=== PATIENT | female | born 1950 | race Caucasian/White ===

== ENCOUNTER 2021-06-05 09:39 | Inpatient (IN) | payer MEDICARE, BC ==
[2021-06-05] MEDS ORDERED: SODIUM CHLORIDE 0.9% 1,000 ML IV STA (10:41)
[2021-06-05] MEDS ORDERED: HYDROmorphone 0.5 MG/0.5 ML SYRINGE IVP STA (10:41)
[2021-06-05] MEDS ORDERED: ONDANSETRON 4 MG/2 ML VIAL IVP STA (10:41)
--- NOTE | 2021-06-05 10:51 | ED ---
Nausea/Vomiting/Diarrhea HPI - General Chief complaint: Nausea/Vomiting/Diarrhea Stated complaint: Diverticulitis Time Seen by Provider: 06/05/21 10:02 Source: patient, EMS, RN notes reviewed Mode of arrival: EMS Limitations: no limitations - History of Present Illness Initial comments: This a 71-year-old female presents emergency Department with chief complaint of abdominal pain. Patient states she started having abdominal pain around 10 PM last night. Patient states diffuse has a history of diverticulitis, hernia repairs her abdomen. Patient admits to diarrhea nonbloody, states there is some mucus. Patient states she has nausea without vomiting. Patient denies fever but has had some chills at home. Patient is concerned about possible infection. - Related Data Home Medications Medication Instructions Recorded Confirmed Diazepam [Valium] 5 mg PO DAILY PRN 06/05/21 06/05/21 Isosorbide Mononitrate ER [Imdur] 60 mg PO DAILY 06/05/21 06/05/21 Levothyroxine Sodium [Synthroid] 200 mcg PO DAILY 06/05/21 06/05/21 Metoprolol Succinate [Toprol XL] 25 mg PO DAILY 06/05/21 06/05/21 Montelukast Sodium [Singulair] 10 mg PO DAILY 06/05/21 06/05/21 Multivitamins, Thera [Multivitamin 1 tab PO DAILY 06/05/21 06/05/21 (formulary)] Nitroglycerin Sl Tabs [Nitrostat] 0.4 mg SUBLINGUAL Q5M PRN 06/05/21 06/05/21 [place]-3 Fatty Acids/Fish Oil [Fish 1 cap PO DAILY 06/05/21 06/05/21 Oil 1,000 mg Softgel] Ondansetron Odt [Zofran Odt] 4 mg PO DAILY PRN 06/05/21 06/05/21 Oxybutynin Chloride [Oxybutynin 10 mg PO DAILY 06/05/21 06/05/21 Chloride ER] Pantoprazole [Protonix] 40 mg PO BID 06/05/21 06/05/21 Simvastatin [Zocor] 40 mg PO DAILY 06/05/21 06/05/21 atenoloL [Atenolol] 25 mg PO DAILY 06/05/21 06/05/21 lisinopriL 40 mg PO DAILY 06/05/21 06/05/21 Allergies Allergy/AdvReac Type Severity Reaction Status Date / Time morphine AdvReac Unknown Verified 06/05/21 10:25 Review of Systems ROS Statement: Those systems with pertinent positive or pertinent negative responses have been documented in the HPI. ROS Other: All systems not noted in ROS Statement are negative. Past Medical History Past Medical History: Asthma, Coronary Artery Disease (CAD), Hyperlipidemia, Hypertension, Pneumonia, Sleep Apnea/CPAP/BIPAP History of Any Multi-Drug Resistant Organisms: MRSA Past Surgical History: Section, Heart Catheterization With Stent, Hernia Repair Additional Past Surgical History / Comment(s): gastric bypass sleeve, vein stripping, L foot bone graft from L hip margaret britton, kim Past Psychological History: No Psychological Hx Reported Smoking Status: Former smoker Past Alcohol Use History: Occasional Past Drug Use History: None Reported General Exam Limitations: no limitations General appearance: alert, in no apparent distress Head exam: Present: atraumatic, normocephalic, normal inspection Respiratory exam: Present: normal lung sounds bilaterally. Absent: respiratory distress, wheezes, rales, rhonchi, stridor Cardiovascular Exam: Present: regular rate, normal rhythm, normal heart sounds. Absent: systolic murmur, diastolic murmur, rubs, gallop, clicks GI/Abdominal exam: Present: soft, tenderness, normal bowel sounds. Absent: distended, guarding, rebound, rigid Back exam: Absent: CVA tenderness (R), CVA tenderness (L) Course Vital Signs 06/05/21 09:41 Temperature 98.4 F Pulse Rate 70 Respiratory 18 Rate Blood Pressure 138/87 O2 Sat by Pulse 92 L Oximetry Medical Decision Making - Medical Decision Making 71-year-old female presents emergency department for abdominal pain. Patient's found to have diverticulitis. Patient is not taking orally well. Patient will be admitted for IV antibiotics. - Lab Data Result diagrams: 06/05/21 10:44 06/05/21 10:44 Lab Results 06/05/21 06/05/21 06/05/21 Range/Units 10:44 10:44 10:44 WBC 10.1 (3.8-10.6) k/uL RBC 4.51 (3.80-5.40) m/uL Hgb 14.3 (11.4-16.0) gm/dL Hct 43.8 (34.0-46.0) % MCV 97.2 (80.0-100.0) fL MCH 31.7 (25.0-35.0) pg MCHC 32.6 (31.0-37.0) g/dL RDW 13.9 (11.5-15.5) % Plt Count 274 (150-450) k/uL MPV 7.6 Neutrophils % 77 % Lymphocytes % 14 % Monocytes % 5 % Eosinophils % 3 % Basophils % 1 % Neutrophils # 7.8 H (1.3-7.7) k/uL Lymphocytes # 1.4 (1.0-4.8) k/uL Monocytes # 0.5 (0-1.0) k/uL Eosinophils # 0.3 (0-0.7) k/uL Basophils # 0.1 (0-0.2) k/uL Sodium 140 (137-145) mmol/L Potassium 4.8 (3.5-5.1) mmol/L Chloride 105 (98-107) mmol/L Carbon Dioxide 24 (22-30) mmol/L Anion Gap 11 mmol/L BUN 22 H (7-17) mg/dL Creatinine 0.89 (0.52-1.04) mg/dL Est GFR (CKD-EPI)AfAm 76 (>60 ml/min/1.73 sqM) Est GFR (CKD-EPI)NonAf 66 (>60 ml/min/1.73 sqM) Glucose 119 H (74-99) mg/dL Plasma Lactic Acid Jermaine 1.4 (0.7-2.0) mmol/L Calcium 10.2 (8.4-10.2) mg/dL Total Bilirubin 0.5 (0.2-1.3) mg/dL AST 31 (14-36) U/L ALT 24 (4-34) U/L Alkaline Phosphatase 75 (38-126) U/L Total Protein 7.3 (6.3-8.2) g/dL Albumin 4.5 (3.5-5.0) g/dL Amylase 58 (30-110) U/L Lipase 81 (23-300) U/L Disposition Clinical Impression: Diverticulitis, Nausea & vomiting Disposition: ADMITTED IP TO THIS HOSP Condition: Fair Referrals: Artemio Hollingsworth III, MD [Primary Care Provider] - 1-2 days Time of Disposition: 13:40
[2021-06-05 11:05] LABS: Basophils # (A) 0.1 k/uL (0-0.2); Basophils % (A) 1 %; Eosinophils # (A) 0.3 k/uL (0-0.7); Eosinophils % (A) 3 %; HCT 43.8 % (34.0-46.0); HGB 14.3 gm/dL (11.4-16.0); Lymphocytes # (A) 1.4 k/uL (1.0-4.8); Lymphocytes % (A) 14 %; MCH 31.7 pg (25.0-35.0); MCHC 32.6 g/dL (31.0-37.0); MCV 97.2 fL (80.0-100.0); Mean Platelet Volume 7.6; Monocytes # (A) 0.5 k/uL (0-1.0); Monocytes % (A) 5 %; Neutrophils # (A) 7.8 k/uL (1.3-7.7); Neutrophils % (A) 77 %; Platelet Count 274 k/uL (150-450); RBC 4.51 m/uL (3.80-5.40); RDW 13.9 % (11.5-15.5); WBC 10.1 k/uL (3.8-10.6)
[2021-06-05 11:14] LABS: Albumin 4.5 g/dL (3.5-5.0); Calcium 10.2 mg/dL (8.4-10.2); Potassium 4.8 mmol/L (3.5-5.1); Total Bilirubin 0.5 mg/dL (0.2-1.3); Total Protein 7.3 g/dL (6.3-8.2)
--- NOTE | 2021-06-05 12:45 | CT ---
EXAMINATION TYPE: CT abdomen pelvis w con DATE OF EXAM: 06/05/2021 COMPARISON: None HISTORY: generalized abdominal pain, history of diverticulitis CT DLP: 2913.4 mGycm CONTRAST: CT scan of the abdomen and pelvis is performed without Oral Contrast and with IV Contrast, patient in jected with 100 mL of Isovue 300. FINDINGS: LUNG BASES-: No visible nodule. No infiltrate. LIVER/GB: No calcified gallstones. No space occupying hepatic lesion. Biliary tree is of normal ca liber. PANCREAS: No inflammation. No distinct mass. SPLEEN: No splenic enlargement. No lesion seen. ADRENALS: No nodule. No thickening. KIDNEYS/BLADDER: No hydronephrosis. No nephrolithiasis. No distinct renal mass. Urinary bladder g rossly unremarkable. BOWEL: Normal appendix. Normal bowel caliber. Inflammatory change about the sigmoid colon compatible with uncomplicated acute diverticulitis. No evidence of perforation or abscess. GENITAL ORGANS: No gross abnormality. LYMPH NODES: No greater than 1cm abdominal or pelvic lymph nodes are appreciated. AORTA: No significant abnormality. OSSEOUS STRUCTURES: Right hip prosthesis. OTHER: No significant additional abnormality is seen. IMPRESSION: 1. Inflammatory change about the sigmoid colon compatible with uncomplicated acute diverticulitis.
[2021-06-05] MEDS ORDERED: metroNIDAZOLE-NS PMX 500 MG in SALINE 1 100ML.BAG IVPB STA (13:41)
[2021-06-05] MEDS ORDERED: HYDROmorphone 0.5 MG/0.5 ML SYRINGE IVP PRN (13:41)
[2021-06-05] MEDS ORDERED: LEVOFLOXACIN 750MG-D5W PMX 750 MG in DEXTROSE/WATER 1 150ML.BAG IVPB STA (13:41)
[2021-06-05] MEDS ORDERED: NALOXONE 0.4 MG/ML 1 ML VIAL IV PRN (13:41)
[2021-06-05 14:08] LABS: Appearance,Urine Clear (Clear); Bilirubin,Urine Negative (Negative); Blood,Urine Negative (Negative); Color,Urine Yellow; Glucose,Urine (UA) Negative (Negative); Ketones,Urine Negative (Negative); Leukocyte Esterase,Urine Negative (Negative); Nitrite,Urine Negative (Negative); Protein,Urine Negative (Negative); Urobilinogen,Urine <2.0 mg/dL (<2.0)
[2021-06-05] MEDS: SODIUM CHLORIDE 0.9% 1,000 ML IV SCH (14:26)
[2021-06-05 14:39] LABS: Specific Gravity,Urine 1.045 (1.001-1.035)
[2021-06-05] MEDS: ONDANSETRON 4 MG/2 ML VIAL IVP PRN (15:54)
[2021-06-05] MEDS: ACETAMINOPHEN TAB 325 MG TAB PO PRN (19:53)
--- NOTE | 2021-06-05 21:21 | P.HPIM ---
History of Present Illness This is a pleasant 71 years old female with past medical history of coronary artery disease, hypertension, hyperlipidemia, sleep apnea on CPAP/BiPAP, asthma, previous history of diverticulitis. Presents with generalized abdominal pain. She is a known case of having diverticulitis last time was last September associated with rectal bleeding she underwent a colonoscopy last December-January 2021 at [facility] where there is another polyp was removed This time her pain started 2 days ago felt like pulsating and compression a ssociated with nausea, pain was 10/10 in severity improved with an ultrasonic down to 5/10. No chest pain or dyspnea area to no coughing. No diarrhea. No vomiting. No headache or weakness or numbness. She quit smoking in 2000, drinks alcohol occasional no illicit drugs Vitas looks stable, oxygen is 90-92% on room air Labs is unremarkable including CBC, BMP, liver enzymes, with normal amylase and lipase. Urine analysis is not suspicious of infection CT of the abdomen and pelvis with contrast: Suspected acute sigmoid diverticulitis patient was started on Levaquin and Flagyl in the emergency room together with normal saline at 75 ml/h Review of Systems CONSTITUTIONAL: No fever, no malaise, no fatigue. HEENT: No recent visual problems or hearing problems. Denied any sore throat. CARDIOVASCULAR: No orthopnea, PND, no palpitations, no syncope. PULMONARY: No shortness of breath, no cough, no hemoptysis. GASTROINTESTINAL: No diarrhea, no nausea, no vomiting, no abdominal pain. Normoactive bowel sounds. NEUROLOGICAL: No headaches, no weakness, no numbness. HEMATOLOGICAL: Denies any bleeding or petechiae. GENITOURINARY: Denies any burning micturition, frequency, or urgency. MUSCULOSKELETAL/RHEUMATOLOGICAL: Denies any joint pain, swelling, or any muscle pain. ENDOCRINE: Denies any polyuria or polydipsia. Past Medical History Past Medical History: Asthma, Coronary Artery Disease (CAD), Hyperlipidemia, Hypertension, Pneumonia, Sleep Apnea/CPAP/BIPAP History of Any Multi-Drug Resistant Organisms: MRSA Past Surgical History: Section, Heart Catheterization With Stent, Hernia Repair Additional Past Surgical History / Comment(s): gastric bypass sleeve, vein stripping, L foot bone graft from L hip margaret britton pt Past Psychological History: No Psychological Hx Reported Smoking Status: Former smoker Past Alcohol Use History: Occasional Past Drug Use History: None Reported Medications and Allergies Home Medications Medication Instructions Recorded Confirmed Type Diazepam [Valium] 5 mg PO DAILY PRN 06/05/21 06/05/21 History Isosorbide Mononitrate ER [Imdur] 60 mg PO DAILY 06/05/21 06/05/21 History Levothyroxine Sodium [Synthroid] 200 mcg PO DAILY 06/05/21 06/05/21 History Metoprolol Succinate [Toprol XL] 25 mg PO DAILY 06/05/21 06/05/21 History Montelukast Sodium [Singulair] 10 mg PO DAILY 06/05/21 06/05/21 History Multivitamins, Thera [Multivitamin 1 tab PO DAILY 06/05/21 06/05/21 History (formulary)] Nitroglycerin Sl Tabs [Nitrostat] 0.4 mg SUBLINGUAL Q5M PRN 06/05/21 06/05/21 History [place]-3 Fatty Acids/Fish Oil [Fish 1 cap PO DAILY 06/05/21 06/05/21 History Oil 1,000 mg Softgel] Ondansetron Odt [Zofran Odt] 4 mg PO DAILY PRN 06/05/21 06/05/21 History Oxybutynin Chloride [Oxybutynin 10 mg PO DAILY 06/05/21 06/05/21 History Chloride ER] Pantoprazole [Protonix] 40 mg PO BID 06/05/21 06/05/21 History Simvastatin [Zocor] 40 mg PO DAILY 06/05/21 06/05/21 History atenoloL [Atenolol] 25 mg PO DAILY 06/05/21 06/05/21 History lisinopriL 40 mg PO DAILY 06/05/21 06/05/21 History Allergies Allergy/AdvReac Type Severity Reaction Status Date / Time morphine AdvReac Unknown Verified 06/05/21 10:25 Physical Exam Vitals: Vital Signs Temp Pulse Resp BP Pulse Ox 06/05/21 18:17 59 L 18 118/55 90 L 06/05/21 09:41 98.4 F 70 18 138/87 92 L Intake and Output 06/05/21 06/05/21 06/05/21 06:59 14:59 22:59 Other: Weight 143.335 kg GENERAL: The patient is alert and oriented x3, not in any acute distress. Well developed, well nourished. HEENT: Pupils are round and equally reacting to light. EOMI. No scleral icterus. No conjunctival pallor. Normocephalic, atraumatic. No pharyngeal erythema. No thyromegaly. CARDIOVASCULAR: S1 and S2 present. No murmurs, rubs, or gallops. PULMONARY: Chest is clear to auscultation, no wheezing or crackles. -ABDOMEN: Soft, generalized abdominal tenderness, more in the lower abdomen, no rebound tenderness or guarding, nondistended, normoactive bowel sounds. No palpable organomegaly. MUSCULOSKELETAL: No joint swelling or deformity. EXTREMITIES: No cyanosis, clubbing, or pedal edema. NEUROLOGICAL: Gross neurological examination did not reveal any focal deficits. SKIN: No rashes. No petechiae Results CBC & Chem 7: 06/05/21 10:44 06/05/21 10:44 Labs: Abnormal Lab Results - Last 24 Hours (Table) 06/05/21 06/05/21 06/05/21 Range/Units 10:44 10:44 10:44 Neutrophils # 7.8 H (1.3-7.7) k/uL BUN 22 H (7-17) mg/dL Glucose 119 H (74-99) mg/dL Ur Specific [place] 1.045 H (1.001-1.035) Assessment and Plan Assessment: Acute sigmoid diverticulitis Hypertension Hyperlipidemia History of coronary artery disease Sleep apnea on CPAP/BiPAP History of asthma Morbid obesity with BMI of 54.2 Plan: This is a pleasant 71 years old female with acute diverticulitis. New with Flagyl and Levaquin and gentle hydration Bowel rest Surgery team consult Labs and medication were reviewed.. Continue same treatment. Continue with symptomatic treatment. Resume home medication. Monitor lytes and vitals. DVT and GI prophylaxis. Further recommendationsas per clinical course of the patient DVT prophylaxis: Subcutaneous heparin GI Prophylaxis: Pepcid Prognosis is guarded
--- NOTE | 2021-06-05 23:25 | XR ---
EXAMINATION TYPE: XR chest 1V portable DATE OF EXAM: 06/05/2021 COMPARISON: NONE HISTORY: Short of breath TECHNIQUE: Single view FINDINGS: Heart and mediastinum are normal. Lungs are clear of infiltrate. Diaphragm is intact. There is minimal subsegmental atelectasis left lung base. Thoracic aorta is atheromatous. IMPRESSION: Minimal subsegmental atelectasis left lung base. No heart failure.
[2021-06-06] MEDS: ONDANSETRON 4 MG/2 ML VIAL IVP PRN
[2021-06-06] MEDS: metroNIDAZOLE-NS PMX 500 MG in SALINE 1 100ML.BAG IVPB SCH ×3 (00:34→15:16)
[2021-06-06] MEDS: HEPARIN SODIUM,PORCINE/PF 5,000 UNIT/0.5 ML SYRINGE SQ SCH ×3 (00:37→15:16)
[2021-06-06] MEDS ORDERED: diazePAM 5 MG TAB PO PRN (01:20)
[2021-06-06] MEDS ORDERED: NITROGLYCERIN SL TABS 0.4 MG TAB SUBLINGUAL PRN (01:20)
[2021-06-06] MEDS: SODIUM CHLORIDE 0.9% 1,000 ML IV SCH ×2 (05:52→08:56)
[2021-06-06] MEDS: PANTOPRAZOLE 40 MG TABLET PO SCH ×2 (09:00→16:45)
[2021-06-06] MEDS ORDERED: FAMOTIDINE 20 MG/2 ML VIAL IV SCH (09:00)
[2021-06-06] MEDS: METOPROLOL SUCCINATE (ER) 25 MG TAB.ER.24H PO SCH (09:00)
[2021-06-06] MEDS: ACETAMINOPHEN TAB 325 MG TAB PO PRN ×2 (09:01→15:22)
[2021-06-06 11:57] LABS: Basophils % (A) 1 %; Eosinophils # (A) 0.3 k/uL (0-0.7); Eosinophils % (A) 4 %; HCT 42.5 % (34.0-46.0); HGB 14.3 gm/dL (11.4-16.0); Lymphocytes # (A) 1.3 k/uL (1.0-4.8); Lymphocytes % (A) 22 %; MCH 32.9 pg (25.0-35.0); MCHC 33.7 g/dL (31.0-37.0); MCV 97.7 fL (80.0-100.0); Mean Platelet Volume 8.3; Monocytes # (A) 0.5 k/uL (0-1.0); Monocytes % (A) 8 %; Neutrophils # (A) 3.7 k/uL (1.3-7.7); Neutrophils % (A) 63 %; Platelet Count 242 k/uL (150-450); RBC 4.35 m/uL (3.80-5.40); RDW 13.6 % (11.5-15.5); WBC 5.9 k/uL (3.8-10.6)
--- NOTE | 2021-06-06 12:36 | P.GSCN ---
History of Present Illness Consult date: 06/06/21 History of present illness: CHIEF COMPLAINT: Abdominal pain HISTORY OF PRESENT ILLNESS: This is a 71-year-old female with a known history of diverticulitis with a past diverticular bleed in September. She also has a history of coronary artery disease cardiac stents, hypertension, hypothyroidism, sleep apnea, asthma and hyperlipidemia. Patient has a past surgical history includes , hernia repair and sleeve gastrectomy. Her last colonoscopy was in January 2021 at [facility] where she had a polyp removed. Patient presents to the hospital with complaints of abdominal pain that started around 10:00 last night. She does have tenderness in the left lower quadrant. She is been having nonbloody diarrhea. She also had nausea with no vomiting. Denies any fever or chills. Computed tomography scan abdomen and pelvis shows inflammatory change about the sigmoid colon compatible with uncomplicated acute diverticulitis. Surgical service has been consult in regards to patient's diverticulitis PAST MEDICAL HISTORY: See list. PAST SURGICAL HISTORY: See list. MEDICATIONS: See list. ALLERGIES: See list. SOCIAL HISTORY: No illicit drug use. REVIEW OF SYSTEMS: CONSTITUTIONAL: Denies fever or chills. HEENT: Denies blurred vision, vision changes, or eye pain. Denies hemoptysis CARDIOVASCULAR: Denies chest pain or pressure. RESPIRATORY: No shortness of breath. GASTROINTESTINAL: See HPI for pertinent findings HEMATOLOGIC: Denies bleeding disorders. GENITOURINARY: Denies any blood in urine or increased urinary frequency. SKIN: Denies pruitis. Denies rash. PHYSICAL EXAM: VITAL SIGNS: Reviewed GENERAL: Well-developed in no acute distress. HEENT: No sclera icterus. Extraocular movements grossly intact. Moist buccal mucosa. Head is atraumatic, normocephalic. No nasal drainage. ABDOMEN: Soft. Obese. Nondistended. Left lower quadrant tenderness NEUROLOGIC: Alert and oriented. Cranial nerves II through XII grossly intact. LABORATORY DATA: WBC is 5.9 hemoglobin 14.3 platelets 242 sodium 140 potassium 4.8 creatinine 0. 89 lactic acid 1.4 LFTs normal Amylase and lipase normal Urinalysis negative for infection IMAGING: Computed tomography scan findings as stated above ASSESSMENT: 1. Acute diverticulitis of the sigmoid colon 2. Prior history of recurrent diverticulitis episodes with a diverticular bleed 3. History of coronary artery disease cardiac stents PLAN: -Start patient on clear liquid diet -Continue medical management -No surgical intervention planned at this time -Continue IV antibiotics Physician Tool Dispatcher note has been reviewed by physician. Signing provider agrees with the documented findings, assessment, and plan of care. Past Medical History Past Medical History: Asthma, Coronary Artery Disease (CAD), Hyperlipidemia, Hypertension, Pneumonia, Sleep Apnea/CPAP/BIPAP History of Any Multi-Drug Resistant Organisms: MRSA Year Discovered:: 2018 MDRO Source:: nasal passages Past Surgical History: Section, Heart Catheterization With Stent, H ernia Repair Additional Past Surgical History / Comment(s): gastric bypass sleeve, vein stripping, L foot bone graft from L hip tummy tobi, pt Past Anesthesia/Blood Transfusion Reactions: No Reported Reaction, Postoperative Nausea & Vomiting (PONV) Date of Last Stent Placement:: 2004 Past Psychological History: No Psychological Hx Reported Smoking Status: Former smoker Past Alcohol Use History: Occasional Past Drug Use History: None Reported Medications and Allergies Home Medications Medication Instructions Recorded Confirmed Type Diazepam [Valium] 5 mg PO DAILY PRN 06/05/21 06/05/21 History Isosorbide Mononitrate ER [Imdur] 60 mg PO DAILY 06/05/21 06/05/21 History Levothyroxine Sodium [Synthroid] 200 mcg PO DAILY 06/05/21 06/05/21 History Metoprolol Succinate [Toprol XL] 25 mg PO DAILY 06/05/21 06/05/21 History Montelukast Sodium [Singulair] 10 mg PO DAILY 06/05/21 06/05/21 History Multivitamins, Thera [Multivitamin 1 tab PO DAILY 06/05/21 06/05/21 History (formulary)] Nitroglycerin Sl Tabs [Nitrostat] 0.4 mg SUBLINGUAL Q5M PRN 06/05/21 06/05/21 History [place]-3 Fatty Acids/Fish Oil [Fish 1 cap PO DAILY 06/05/21 06/05/21 History Oil 1,000 mg Softgel] Ondansetron Odt [Zofran Odt] 4 mg PO DAILY PRN 06/05/21 06/05/21 History Oxybutynin Chloride [Oxybutynin 10 mg PO DAILY 06/05/21 06/05/21 History Chloride ER] Pantoprazole [Protonix] 40 mg PO BID 06/05/21 06/05/21 History Simvastatin [Zocor] 40 mg PO DAILY 06/05/21 06/05/21 History atenoloL [Atenolol] 25 mg PO DAILY 06/05/21 06/05/21 History lisinopriL 40 mg PO DAILY 06/05/21 06/05/21 History Allergies Allergy/AdvReac Type Severity Reaction Status Date / Time morphine AdvReac Unknown Verified 06/05/21 10:25 Surgical - Exam Vital Signs Temp Pulse Resp BP Pulse Ox 98.4 F 70 18 138/87 92 L 06/05/21 09:41 06/05/21 09:41 06/05/21 09:41 06/05/21 09:41 06/05/21 09:41 Results - Labs 06/06/21 10:24 06/05/21 10:44 Abnormal Lab Results - Last 24 Hours (Table) 06/05/21 Range/Units 10:44 Ur Specific [place] 1.045 H (1.001-1.035)
[2021-06-06] MEDS ORDERED: LEVOFLOXACIN 750MG-D5W PMX 750 MG in DEXTROSE/WATER 1 150ML.BAG IVPB SCH (14:00)
[2021-06-06 17:47] LABS: Glucose,Whole Blood 88 mg/dL (75-99)
--- NOTE | 2021-06-06 17:52 | P.PN ---
Subjective This is a pleasant 71 years old female with past medical history of coronary artery disease, hypertension, hyperlipidemia, sleep apnea on CPAP/BiPAP, asthma, previous history of diverticulitis. Presents with generalized abdominal pain. She is a known case of having diverticulitis last time was last September associated with rectal bleeding she underwent a colonoscopy last December-January 2021 at [facility] where there is another polyp was removed This time her pain started 2 days ago felt like pulsating and compression associated with nausea, pain was 10/10 in severity improved with an ultrasonic down to 5/10. No chest pain or dyspnea area to no coughing. No diarrhea. No vomiting. No headache or weakness or numbness. She quit smoking in 2000, drinks alcohol occasional no illicit drugs Vitas looks stable, oxygen is 90-92% on room air Labs is unremarkable including CBC, BMP, liver enzymes, with normal amylase and lipase. Urine analysis is not suspicious of infection CT of the abdomen and pelvis with contrast: Suspected acute sigmoid diverticulitis patient was started on Levaquin and Flagyl in the emergency room together with normal saline at 75 ml/h 06/06/2021 Patient presents with diverticulitis, her symptoms are improving today and his pain better and she rated at 4/10, still all over her abdomen which is distended from obesity Patient for surgery and wants to start diet, patient was started on liquid diet Patient is hemodynamically stable Surgery team recommended no surgical intervention for now and can follow-up as an outpatient Patient was counseled about Ativan/Valium and risk of falling, she takes for her back pain and she does not want to quit 8 Possible discharge in 24-48 hours if she keeps improving Objective - Vital Signs Vital signs: Vital Signs Temp 97.8 F 06/06/21 12:13 Pulse 54 L 06/06/21 12:13 Resp 17 06/06/21 12:13 BP 106/64 06/06/21 12:13 Pulse Ox 95 06/06/21 12:13 Intake & Output 06/05/21 06/06/21 06/06/21 18:59 06:59 18:59 Intake Total 525 Balance 525 Weight 143.335 kg 143.335 kg Intake: Intake, IV Titration 525 Amount Sodium Chloride 0.9% 1, 525 000 ml @ 75 mls/hr IV . [id number] [facility] Rx#:[id number] Other: # Bowel Movements 0 # [place] 0 - Exam GENERAL: The patient is alert and oriented x3, not in any acute distress. Well developed, well nourished. HEENT: Pupils are round and equally reacting to light. EOMI. No scleral icterus. No conjunctival pallor. Normocephalic, atraumatic. No pharyngeal erythema. No thyromegaly. CARDIOVASCULAR: S1 and S2 present. No murmurs, rubs, or gallops. PULMONARY: Chest is clear to auscultation, no wheezing or crackles. -ABDOMEN: Soft, generalized abdominal pain and tenderness with no rebound tenderness, nondistended, normoactive bowel sounds. No palpable organomegaly. MUSCULOSKELETAL: No joint swelling or deformity. EXTREMITIES: No cyanosis, clubbing, or pedal edema. NEUROLOGICAL: Gross neurological examination did not reveal any focal deficits. SKIN: No rashes. no petechiae. - Labs CBC & Chem 7: 06/06/21 10:24 06/05/21 10:44 Labs: Abnormal Lab Results - Last 24 Hours (Table) 06/05/21 Range/Units 10:44 Ur Specific [place] 1.045 H (1.001-1.035) Assessment and Plan Assessment: Acute sigmoid diverticulitis Hypertension Hyperlipidemia History of recurrent diverticulitis History of coronary artery disease Sleep apnea on CPAP/BiPAP History of asthma Morbid obesity with BMI of 54.2 Plan: This is a pleasant 71 years old female with acute diverticulitis. New with Flagyl and Levaquin and gentle hydration Liquid diet Surgery team consult Labs and medication were reviewed.. Continue same treatment. Continue with symptomatic treatment. Resume home medication. Monitor lytes and vitals. DVT and GI prophylaxis. Further recommendations as per clinical course of the patient DVT prophylaxis: Subcutaneous heparin GI Prophylaxis: Pepcid Prognosis is guarded
[2021-06-06 20:06] VITALS: RESP 16
[2021-06-06] MEDS: FAMOTIDINE 20 MG TAB PO SCH (21:18)
[2021-06-06] MEDS: metroNIDAZOLE 500 MG TAB PO SCH (21:18)
[2021-06-07] MEDS: HEPARIN SODIUM,PORCINE/PF 5,000 UNIT/0.5 ML SYRINGE SQ SCH ×3 (06:02→16:25)
[2021-06-07] MEDS: PANTOPRAZOLE 40 MG TABLET PO SCH ×2 (09:22→16:29)
[2021-06-07] MEDS: metroNIDAZOLE 500 MG TAB PO SCH ×2 (09:23→16:29)
[2021-06-07] MEDS: FAMOTIDINE 20 MG TAB PO SCH (09:23)
[2021-06-07] MEDS: METOPROLOL SUCCINATE (ER) 25 MG TAB.ER.24H PO SCH (09:23)
[2021-06-07] MEDS: ACETAMINOPHEN TAB 325 MG TAB PO PRN (09:24)
[2021-06-07] MEDS ORDERED: polyethylene glycoL 3350 17 GM POWD.PACK PO SCH (09:30)
[2021-06-07] MEDS ORDERED: LEVOFLOXACIN 500 MG TAB PO SCH (10:45)
[2021-06-07 13:12] VITALS: BP 142/88; PULSE 59; TEMP 98.1
--- NOTE | 2021-06-07 14:00 | P.PN ---
<Monica Cervantes - Last Filed: 06/07/21 13:58> Subjective Progress Note Date: 06/07/21 CHIEF COMPLAINT: Diverticulitis HISTORY OF PRESENT ILLNESS: Patient is reporting improvement in her abdominal pain. She was able to tolerate a regular diet. She denies any worsening in her abdominal pain. Denies any nausea or vomiting. She is eager for discharge home. Afebrile. PHYSICAL EXAM: VITAL SIGNS: Reviewed. GENERAL: Well-developed in no acute distress. HEENT: No sclera icterus. Extraocular movements grossly intact. Moist buccal mucosa. Head is atraumatic, normocephalic. ABDOMEN: Soft. Obese. Nondistended. Minimal left lower quadrant tenderness NEUROLOGIC: Alert and oriented. Cranial nerves II through XII grossly intact. ASSESSMENT: 1. Acute diverticulitis of the sigmoid colon 2. Prior history of recurrent diverticulitis episodes with a diverticular bleed PLAN: -Patient is stable from surgical standpoint for discharge -Patient to follow-up with Dr. Silva in the office in 1 week Physician Cupola Liner Helper note has been reviewed by physician. Signing provider agrees with the documented findings, assessment, and plan of care. Objective - Vital Signs Vital signs: Vital Signs Temp 98.1 F 06/07/21 11:16 Pulse 59 L 06/07/21 11:16 Resp 16 06/07/21 11:16 BP 142/88 06/07/21 11:16 Pulse Ox 91 L 06/07/21 11:16 Intake & Output 06/06/21 06/07/21 06/07/21 18:59 06:59 18:59 Intake Total 600 Balance 600 Intake: Oral 600 Other: Voiding Method Toilet Toilet # Voids 2 2 - Labs CBC & Chem 7: 06/06/21 10:24 06/05/21 10:44 Labs: Microbiology - Last 24 Hours (Table) 06/05/21 14:15 Blood Culture - Preliminary Blood No Growth after 24 hours <Nelson Cortez - Last Filed: 06/07/21 19:15> Subjective As above. Patient doing well. Pain much improved. May discharge. Follow-up as outpatient. Objective - Vital Signs Vital signs: Vital Signs Temp 98.1 F 06/07/21 11:16 Pulse 59 L 06/07/21 11:16 Resp 16 06/07/21 11:16 BP 142/88 06/07/21 11:16 Pulse Ox 91 L 06/07/21 11:16 Intake & Output 06/07/21 06/07/21 06/08/21 06:59 18:59 06:59 Intake Total 600 Balance 600 Intake: Oral 600 Other: Voiding Method Toilet Toilet # Voids 2 # Bowel Movements 1 - Labs CBC & Chem 7: 06/06/21 10:24 06/05/21 10:44 Labs: Microbiology - Last 24 Hours (Table) 06/05/21 14:15 Blood Culture - Preliminary Blood No Growth after 48 hours
--- NOTE | 2021-06-08 22:17 | P.DS ---
Providers Date of admission: 06/05/21 14:00 Attending physician: Jared Perez MD Consults: 06/05/21 21:15 Consult Physician Urgent Consulting Provider: Anthony Silva Consult Reason/Comments: diverticulitis Do you want consulting provider notified?: Yes, Notify in am Primary care physician: Artemio Ba Darrick [facility] Course: Diagnoses: Acute sigmoid diverticulitis Hypertension Hyperlipidemia History of recurrent diverticulitis History of coronary artery disease Sleep apnea on CPAP/BiPAP History of asthma Morbid obesity with BMI of 54.2 Hospital course: This is a pleasant 71 years old female with past medical history of coronary artery disease, hypertension, hyperlipidemia, sleep apnea on CPAP/BiPAP, asthma, previous history of diverticulitis. Presents with generalized abdominal pain. She is a known case of having diverticulitis last time was last September associated with rectal bleeding she underwent a colonoscopy last December-January 2021 at [facility] where there is another polyp was removed This time her pain started 2 days ago felt like pulsating and compression associated with nausea, pain was 10/10 in severity improved with treatment significantly CT of the abdomen and pelvis with contrast: Suspected acute sigmoid diverticulitis patient was treated with bowel rest, IV fluids and pain medication, been evaluated by surgical team recommended no surgical intervention now, eventually patient showed interval improvement, her diet was advanced and tolerated well by the patient, no nausea vomiting, abdominal pain significantly improved Her diarrhea was stopped. She is hemodynamically stable, labs are stable. Patient denies any other symptoms and she agrees to go home today Patient tolerated to regular diet Patient was cleared for discharge by surgery team Problems and management plan were discussed with the patient and he verbalized understanding and acceptance Patient was found stable and can be discharged home however he needs follow-up as an outpatient. Patient was instructed to follow up with PCP Dr. Hollingsworth within one week and patient agrees Patient was instructed to follow up with his surgeon Dr. Silva in one week and she agrees to call and make her own appointment Physical exam Gen: patient is a AAOx3, no distress CVS: S1-S2, RRR, no murmur Lungs: B/L CTA, no wheezing Abdomen: soft, no distention, no tenderness, positive bowel sounds Extremity: no leg edema or induration Time spent more than 35 minutes Patient Condition at Discharge: Fair Plan - Discharge Summary New Discharge Prescriptions: New metroNIDAZOLE [Flagyl] 500 mg PO TID 7 Days #21 tab levoFLOXacin 500 mg PO DAILY 7 Days #5 tab polyethylene glycoL 3350 [Miralax] 17 gm PO DAILY PRN 3 Days #3 powd.pack PRN Reason: Constipation Acetaminophen Tab [Tylenol] 650 mg PO Q6HR PRN tab PRN Reason: Mild Pain Or Fever > 100.5 diphenhydrAMINE [Benadryl] 25 mg PO HS PRN 3 Days #3 capsule PRN Reason: Nausea And Vomiting Continue [place]-3 Fatty Acids/Fish Oil [Fish Oil 1,000 mg Softgel] 1 cap PO DAILY Simvastatin [Zocor] 40 mg PO DAILY Oxybutynin Chloride [Oxybutynin Chloride ER] 10 mg PO DAILY Montelukast Sodium [Singulair] 10 mg PO DAILY Levothyroxine Sodium [Synthroid] 200 mcg PO DAILY Pantoprazole [Protonix] 40 mg PO BID Nitroglycerin Sl Tabs [Nitrostat] 0.4 mg SUBLINGUAL Q5M PRN PRN Reason: Chest Pain Metoprolol Succinate [Toprol XL] 25 mg PO DAILY Isosorbide Mononitrate ER [Imdur] 60 mg PO DAILY Diazepam [Valium] 5 mg PO DAILY PRN PRN Reason: Anxiety Discontinued Ondansetron Odt [Zofran Odt] 4 mg PO DAILY PRN PRN Reason: Nausea lisinopriL 40 mg PO DAILY atenoloL [Atenolol] 25 mg PO DAILY Multivitamins, Thera [Multivitamin (formulary)] 1 tab PO DAILY Discharge Medication List Diazepam [Valium] 5 mg PO DAILY PRN 06/05/21 [History] Isosorbide Mononitrate ER [Imdur] 60 mg PO DAILY 06/05/21 [History] Levothyroxine Sodium [Synthroid] 200 mcg PO DAILY 06/05/21 [History] Metoprolol Succinate [Toprol XL] 25 mg PO DAILY 06/05/21 [History] Montelukast Sodium [Singulair] 10 mg PO DAILY 06/05/21 [History] Nitroglycerin Sl Tabs [Nitrostat] 0.4 mg SUBLINGUAL Q5M PRN 06/05/21 [History] [place]-3 Fatty Acids/Fish Oil [Fish Oil 1,000 mg Softgel] 1 cap PO DAILY 06/05/21 [History] Oxybutynin Chloride [Oxybutynin Chloride ER] 10 mg PO DAILY 06/05/21 [History] Pantoprazole [Protonix] 40 mg PO BID 06/05/21 [History] Simvastatin [Zocor] 40 mg PO DAILY 06/05/21 [History] Acetaminophen Tab [Tylenol] 650 mg PO Q6HR PRN tab 06/07/21 [Rx] diphenhydrAMINE [Benadryl] 25 mg PO HS PRN 3 Days #3 capsule 06/07/21 [Rx] levoFLOXacin 500 mg PO DAILY 7 Days #5 tab 06/07/21 [Rx] metroNIDAZOLE [Flagyl] 500 mg PO TID 7 Days #21 tab 06/07/21 [Rx] polyethylene glycoL 3350 [Miralax] 17 gm PO DAILY PRN 3 Days #3 powd.pack 06/07/21 [Rx] Follow up Appointment(s)/Referral(s): Artemio Hollingsworth III, MD [Primary Care Provider] - 1-2 days Anthony Silva MD [STAFF PHYSICIAN] - 1 Week Activity/Diet/Wound Care/Special Instructions: Heart healthy diet Activity is restricted until you see your doctor we recommend you follow up with your primary care physician in week (kaushik emmanuel) please call to make appointment in one week , you have the contact information as you informed the medical staff Discharge Disposition: HOME SELF-CARE
== END 2021-06-07 17:17 | disposition home or self-care (01) | DRG 392 ==
LOC: EC 09:39 → 5NMEDONC 14:00
PROVIDERS: ADMIT Internal Medicine; ATTEND Internal Medicine
DX: K57.32 Diverticulitis of large intestine without perforation or abscess without bleeding (principal); Z68.43 Body mass index [BMI] 50.0-59.9, adult; Z79.890 Hormone replacement therapy; I25.10 Atherosclerotic heart disease of native coronary artery without angina pectoris; J45.909 Unspecified asthma, uncomplicated; Z87.891 Personal history of nicotine dependence; Z87.01 Personal history of pneumonia (recurrent); G47.30 Sleep apnea, unspecified; Z86.14 Personal history of Methicillin resistant Staphylococcus aureus infection; E66.01 Morbid (severe) obesity due to excess calories; Z95.5 Presence of coronary angioplasty implant and graft; E03.9 Hypothyroidism, unspecified; E78.5 Hyperlipidemia, unspecified; I10 Essential (primary) hypertension; Z79.899 Other long term (current) drug therapy; Z98.84 Bariatric surgery status
CPT/HCPCS: 36415; 71045; 74177; 80053; 81003; 82150; 83605; 83690; 85025; 87040; 96361; 96374; 96375; 99285

== ENCOUNTER 2022-07-18 12:09 | Observation (INO) | payer MEDICARE, BC ==
[2022-07-18] MEDS ORDERED: NITROGLYCERIN OINT 1 INCH/GM PACKET TOPICAL STA (13:46)
[2022-07-18] MEDS ORDERED: ASPIRIN 81 MG PO STA (13:46)
--- NOTE | 2022-07-18 13:55 | ED ---
General Adult HPI - General Chief complaint: Chest Pain Stated complaint: Chest pain, infected foot Time Seen by Provider: 07/18/22 13:35 Source: patient, RN notes reviewed, old records reviewed Mode of arrival: ambulatory Limitations: no limitations - History of Present Illness Initial comments: This is a 72-year-old female with past medical history significant for coronary artery disease and a stent, high blood pressure and high cholesterol. Patient comes in today stating that in the middle the night she woke up had significant chest pain more so than her normal baseline. Patient states she took a nitroglycerin it did subside. Patient denies any radiation of the pain. Patient thought she was more short of breath and normal. Patient denied any diaphoretic episodes. Patient denies nausea vomiting diarrhea. Patient states she hasn't had any chest pain since but since this was worse than her normal chest pain she wanted to be evaluated. Patient also comes in complaining that she has a small area of erythema and blister to her right anterior foot. Patient states this started after her foot was wrapped for lymphedema and distal to the wrapped this area of blistering occurred as well as the redness. Patient states is very painful and she is worried that is infected and she has a history of MRSA. - Related Data Home Medications Medication Instructions Recorded Confirmed Isosorbide Mononitrate ER [Imdur] 60 mg PO DAILY 06/05/21 07/18/22 Levothyroxine Sodium [Synthroid] 200 mcg PO DAILY 06/05/21 07/18/22 Metoprolol Succinate [Toprol XL] 25 mg PO DAILY 06/05/21 07/18/22 Montelukast Sodium [Singulair] 10 mg PO DAILY 06/05/21 07/18/22 [place]-3 Fatty Acids/Fish Oil [Fish 1 cap PO DAILY 06/05/21 07/18/22 Oil 1,000 mg Softgel] Simvastatin [Zocor] 40 mg PO HS 06/05/21 07/18/22 Acetaminophen Tab [Tylenol] 650 mg PO Q6HR 07/18/22 07/18/22 Aspirin [[place] Aspirin EC] 81 mg PO DAILY 07/18/22 07/18/22 Fiber Tablet 1 - 2 tab PO DAILY 07/18/22 07/18/22 Furosemide [Lasix] 20 mg PO BID PRN 07/18/22 07/18/22 Losartan Potassium [Cozaar] 100 mg PO DAILY 07/18/22 07/18/22 Multivitamins, Thera [Multivitamin 1 tab PO DAILY 07/18/22 07/18/22 (formulary)] Omeprazole 40 mg PO BID 07/18/22 07/18/22 Allergies Allergy/AdvReac Type Severity Reaction Status Date / Time morphine AdvReac Unknown Verified 07/18/22 15:33 Review of Systems ROS Statement: Those systems with pertinent positive or pertinent negative responses have been documented in the HPI. ROS Other: All systems not noted in ROS Statement are negative. Past Medical History Past Medical History: Asthma, Coronary Artery Disease (CAD), Hyperlipidemia, Hypertension, Pneumonia, Sleep Apnea/CPAP/BIPAP History of Any Multi-Drug Resistant Organisms: MRSA Date of last positivie culture/infection: 2017 MDRO Source:: nasal passages Past Surgical History: Section, Heart Catheterization With Stent, Hernia Repair Additional Past Surgical History / Comment(s): gastric bypass sleeve, vein stripping, L foot bone graft from L hip margaret britton, kim Past Anesthesia/Blood Transfusion Reactions: No Reported Reaction, Postoperative Nausea & Vomiting (PONV) Date of Last Stent Placement:: 2004 Past Psychological History: No Psychological Hx Reported Smoking Status: Former smoker Past Alcohol Use History: Occasional Past Drug Use History: None Reported General Exam - General Exam Comments Initial Comments: GENERAL: Patient is well-developed and well-nourished. Patient is nontoxic and well- hydrated and is in mild distress. ENT: Neck is soft and supple. No significant lymphadenopathy is noted. Oropharynx is clear. Moist mucous membranes. Neck has full range of motion without eliciting any pain. EYES: The sclera were anicteric and conjunctiva were pink and moist. Extraocular movements were intact and pupils were equal round and reactive to light. Eyelids were unremarkable. PULMONARY: Unlabored respirations. Good breath sounds bilaterally. No audible rales rhonchi or wheezing was noted. CARDIOVASCULAR: There is a regular rate and rhythm without any murmurs gallops or rubs. ABDOMEN: Soft and nontender with normal bowel sounds. No palpable organomegaly was noted. There is no palpable pulsatile mass. SKIN: Patient has an area of erythema and tenderness and a blister at the anterior aspect of the right foot at the distal aspect of metatarsals 2 through 4 NEUROLOGIC: Patient is alert and oriented x3. Cranial nerves II through XII are grossly intact. Motor and sensory are also intact. Normal speech, volume and content. Symmetrical smile. MUSCULOSKELETAL: Normal extremities with adequate strength and full range of motion. LYMPHATICS: No significant lymphadenopathy is noted PSYCHIATRIC: Normal psychiatric evaluation. Limitations: no limitations Course Vital Signs 07/18/22 07/18/22 12:26 14:33 Temperature 98.7 F Pulse Rate 70 67 Respiratory 22 18 Rate Blood Pressure 168/92 149/87 O2 Sat by Pulse 95 95 Oximetry Medical Decision Making - Medical Decision Making EKG shows sinus bradycardia 59 bpm MT interval is 200 QRS is 94 Q-T intervals 470 QTC is 460. Patient's EKG shows no ST segment elevation or depression. Patient's chest x-ray shows no acute abnormality. I spoke with sounds physicians and they agreed to admit the patient admitted the patient wrote admitting orders. - Lab Data Result diagrams: 07/18/22 14:08 07/18/22 14:08 Lab Results 07/18/22 07/18/22 07/18/22 Range/Units 14:08 14:08 14:08 WBC 7.0 (3.8-10.6) k/uL RBC 4.45 (3.80-5.40) m/uL Hgb 13.6 (11.4-16.0) gm/dL Hct 42.5 (34.0-46.0) % MCV 95.6 (80.0-100.0) fL MCH 30.6 (25.0-35.0) pg MCHC 32.0 (31.0-37.0) g/dL RDW 13.2 (11.5-15.5) % Plt Count 276 (150-450) k/uL MPV 6.9 Neutrophils % 57 % Lymphocytes % 28 % Monocytes % 6 % Eosinophils % 7 % Basophils % 1 % Neutrophils # 4.0 (1.3-7.7) k/uL Lymphocytes # 1.9 (1.0-4.8) k/uL Monocytes # 0.5 (0-1.0) k/uL Eosinophils # 0.5 (0-0.7) k/uL Basophils # 0.1 (0-0.2) k/uL PT 9.7 (9.0-12.0) sec INR 0.9 (<1.2) APTT 20.9 L (22.0-30.0) sec Sodium 140 (137-145) mmol/L Potassium 4.5 (3.5-5.1) mmol/L Chloride 104 (98-107) mmol/L Carbon Dioxide 24 (22-30) mmol/L Anion Gap 12 mmol/L BUN 13 (7-17) mg/dL Creatinine 0.67 (0.52-1.04) mg/dL Est GFR (CKD-EPI)AfAm >90 (>60 ml/min/1.73 sqM) Est GFR (CKD-EPI)NonAf 89 (>60 ml/min/1.73 sqM) Glucose 107 H (74-99) mg/dL Plasma Lactic Acid Jermaine (0.7-2.0) mmol/L Calcium 9.6 (8.4-10.2) mg/dL Magnesium 1.7 (1.6-2.3) mg/dL Total Bilirubin 0.4 (0.2-1.3) mg/dL AST 24 (14-36) U/L ALT 22 (4-34) U/L Alkaline Phosphatase 92 (38-126) U/L Troponin I (0.000-0.034) ng/mL Total Protein 7.3 (6.3-8.2) g/dL Albumin 4.5 (3.5-5.0) g/dL 07/18/22 07/18/22 Range/Units 14:08 14:08 WBC (3.8-10.6) k/uL RBC (3.80-5.40) m/uL Hgb (11.4-16.0) gm/dL Hct (34.0-46.0) % MCV (80.0-100.0) fL MCH (25.0-35.0) pg MCHC (31.0-37.0) g/dL RDW (11.5-15.5) % Plt Count (150-450) k/uL MPV Neutrophils % % Lymphocytes % % Monocytes % % Eosinophils % % Basophils % % Neutrophils # (1.3-7.7) k/uL Lymphocytes # (1.0-4.8) k/uL Monocytes # (0-1.0) k/uL Eosinophils # (0-0.7) k/uL Basophils # (0-0.2) k/uL PT (9.0-12.0) sec INR (<1.2) APTT (22.0-30.0) sec Sodium (137-145) mmol/L Potassium (3.5-5.1) mmol/L Chloride (98-107) mmol/L Carbon Dioxide (22-30) mmol/L Anion Gap mmol/L BUN (7-17) mg/dL Creatinine (0.52-1.04) mg/dL Est GFR (CKD-EPI)AfAm (>60 ml/min/1.73 sqM) Est GFR (CKD-EPI)NonAf (>60 ml/min/1.73 sqM) Glucose (74-99) mg/dL Plasma Lactic Acid Jermaine 0.9 (0.7-2.0) mmol/L Calcium (8.4-10.2) mg/dL Magnesium (1.6-2.3) mg/dL Total Bilirubin (0.2-1.3) mg/dL AST (14-36) U/L ALT (4-34) U/L Alkaline Phosphatase (38-126) U/L Troponin I <0.012 (0.000-0.034) ng/mL Total Protein (6.3-8.2) g/dL Albumin (3.5-5.0) g/dL Disposition Clinical Impression: Chest pain, Cellulitis of foot Disposition: ADMITTED IP TO THIS HOSP Referrals: Artemio Hollingsworth III, MD [Primary Care Provider] - 1-2 days Time of Disposition: 16:12
[2022-07-18 14:23] LABS: Basophils # (A) 0.1 k/uL (0-0.2); Basophils % (A) 1 %; Eosinophils # (A) 0.5 k/uL (0-0.7); Eosinophils % (A) 7 %; HCT 42.5 % (34.0-46.0); HGB 13.6 gm/dL (11.4-16.0); Lymphocytes # (A) 1.9 k/uL (1.0-4.8); Lymphocytes % (A) 28 %; MCH 30.6 pg (25.0-35.0); MCV 95.6 fL (80.0-100.0); Mean Platelet Volume 6.9; Monocytes # (A) 0.5 k/uL (0-1.0); Monocytes % (A) 6 %; Neutrophils % (A) 57 %; Platelet Count 276 k/uL (150-450); RBC 4.45 m/uL (3.80-5.40); RDW 13.2 % (11.5-15.5)
[2022-07-18 14:42] LABS: ALT 22 U/L (4-34); AST 24 U/L (14-36); African American GFR (CKD) >90 (>60 ml/min/1.73 sqM); Albumin 4.5 g/dL (3.5-5.0); Alkaline Phosphatase 92 U/L (38-126); Anion Gap 12 mmol/L; Blood Urea Nitrogen 13 mg/dL (7-17); Calcium 9.6 mg/dL (8.4-10.2); Carbon Dioxide 24 mmol/L (22-30); Chloride 104 mmol/L (98-107); Glucose 107 mg/dL (74-99); INR 0.9 (<1.2); Magnesium 1.7 mg/dL (1.6-2.3); Non-African American GFR(CKD) 89 (>60 ml/min/1.73 sqM); Partial Thromboplastin Time 20.9 sec (22.0-30.0); Potassium 4.5 mmol/L (3.5-5.1); Prothrombin Time 9.7 sec (9.0-12.0); Sodium 140 mmol/L (137-145); Total Bilirubin 0.4 mg/dL (0.2-1.3); Total Protein 7.3 g/dL (6.3-8.2)
[2022-07-18] MEDS ORDERED: NITROGLYCERIN SL TABS 0.4 MG TAB SUBLINGUAL PRN (16:12)
[2022-07-18] MEDS ORDERED: KETOROLAC 15 MG/ML 1 ML VIAL IVP STA (16:12)
[2022-07-18] MEDS ORDERED: NALOXONE 0.4 MG/ML 1 ML VIAL IVP PRN (17:13)
[2022-07-18] MEDS ORDERED: FUROSEMIDE 20 MG TAB PO PRN (17:15)
[2022-07-18] MEDS ORDERED: NITROGLYCERIN OINT 1 INCH/GM PACKET TOPICAL SCH (18:00)
[2022-07-18] MEDS ORDERED: ONDANSETRON 4 MG/2 ML VIAL IVP PRN (18:19)
--- NOTE | 2022-07-18 18:35 | P.HPIM ---
History of Present Illness H&P Date: 07/18/22 History of Presenting Illness: Patient is a very pleasant 72-year-old female with a past medical history of CAD with stents, hypertension, hyperlipidemia, obstructive sleep apnea CPAP dependent nightly, and lymphedema. She presented to the emergency department with a chief complaint of chest pain and wound on right foot. Patient reports that she follows at the wound care clinic and gets her bilateral lower extremities wrapped secondary to lymphedema. Patient reports yesterday she developed a blister on her right foot secondary to irritation of where the wrap seemed to rub and while sleeping last night she was awoken by a sharp pain in her midsternal chest in which she states she took off her CPAP reached over on her nightstand and grabbed a nitro placing it under her tongue and the chest pain was resolved almost instantly and she went back to sleep. Patient reports upon awakening this morning she felt back to her normal baseline and had no further episodes of chest pain or discomfort. However she states she was supposed to go to the clinic today to have her legs wrapped but due to the blister she thought it was best that she did not. So she called the clinic and when she mentioned that she also had chest pain last night they told her to come to the emergency department for evaluation. Patient underwent full evaluation in the emergency department. CBC, coags, and CMP were unremarkable. Troponin was negative at less than 0.012. EKG showing sinus bradycardia at 59 bpm with no noted T wave or ST abnormality showing no signs of acute ischemia. Awaiting final radiologist read on chest x-ray however upon evaluation showing no acute cardiopulmonary process. Patient was admitted under our services with consultation to cardiology. Review of systems: Pertinent positives and negatives as discussed in HPI, a complete review of systems was performed and all other systems are negative. Physical exam: Vital signs reviewed and stable. General: Nontoxic, no distress and appears stated age. Derm: Skin warm and dry, normal coloration for ethnicity. Patient has a fluid- filled vesicle to right foot with minimal erythema surrounding, no signs of infection. Head: Atraumatic, normocephalic and symmetric. Eyes: EOMs intact, no lid lag, and anicteric sclera Mouth: no lip lesions, mucus membranes moist Cardiovascular: regular rate and rhythm with normal S1S2, no murmur, positive posterior tibial pulses bilaterally, and cap refill < 2 seconds. Lungs: Respirations even, regular, and unlabored on room air. Lungs CTA bilaterally, no rhonchi, no rales, no wheezing, and no accessory muscle usage. Abdominal: Obese abdomen soft, nontender to palpation, no guarding, no appreciable organomegaly Ext: ROM intact. No gross muscle atrophy, bilateral lower extremity nonpitting edema, no contractures Neuro: Speech clear, face symmetrical and CN II-XII grossly intact with no noted focal neuro deficits Psych: Alert and oriented to person, place, time, and situation. Appropriate and pleasant affect. Assessment and Plan of Care: Chest pain, rule out acute coronary event History of CAD with stents Hypertension Hyperlipidemia -Cardiology consult, appreciate further recommendations -Telemetry monitoring -Trend troponins -Cardiac diet, NPO at midnight -Continue daily cardiac medication regimen with aspirin, atorvastatin, isosorbide mononitrate, losartan, and metoprolol. -Lipid profile with a.m. labs. Vesicle to right foot, dorsal surface Lymphedema of bilateral lower extremities -Symptomatic care and pain management. -Patient to continue to follow up outpatient with wound care clinic. Obstructive sleep apnea -Continue use of home CPAP nightly and will mapping. The patient is admitted with an anticipated less than 2 midnight stay for evaluation of []. CODE STATUS: Full code DVT prophylaxis: Heparin Discussed with: Patient and RN Anticipated discharge date: 1-[address]: Home A total of 45 minutes was spent on the care of this complex patient more than 50% of the time was spent in counseling and care coordination. I reviewed the documentation as provided by the YAO above, who is the original author of this note. I agree with the documented assessment and plan, with the following changes: none Past Medical History Past Medical History: Asthma, Coronary Artery Disease (CAD), Hyperlipidemia, Hypertension, Memory Impairment, Pneumonia, Sleep Apnea/CPAP/BIPAP History of Any Multi-Drug Resistant Organisms: MRSA Date of last positivie culture/infection: 2017 MDRO Source:: nasal passages Past Surgical History: Section, Heart Catheterization With Stent, Hernia Repair Additional Past Surgical History / Comment(s): gastric bypass sleeve, vein stripping, L foot bone graft from L hip margaret britton, pt Past Anesthesia/Blood Transfusion Reactions: No Reported Reaction, Postoperative Nausea & Vomiting (PONV) Date of Last Stent Placement:: 2004 Past Psychological History: No Psychological Hx Reported Smoking Status: Former smoker Past Alcohol Use History: Occasional Past Drug Use History: None Reported Medications and Allergies Home Medications Medication Instructions Recorded Confirmed Type Isosorbide Mononitrate ER [Imdur] 60 mg PO DAILY 06/05/21 07/18/22 History Levothyroxine Sodium [Synthroid] 200 mcg PO DAILY 06/05/21 07/18/22 History Metoprolol Succinate [Toprol XL] 25 mg PO DAILY 06/05/21 07/18/22 History Montelukast Sodium [Singulair] 10 mg PO DAILY 06/05/21 07/18/22 History [place]-3 Fatty Acids/Fish Oil [Fish 1 cap PO DAILY 06/05/21 07/18/22 History Oil 1,000 mg Softgel] Simvastatin [Zocor] 40 mg PO HS 06/05/21 07/18/22 History Acetaminophen Tab [Tylenol] 650 mg PO Q6HR 07/18/22 07/18/22 History Aspirin [[place] Aspirin EC] 81 mg PO DAILY 07/18/22 07/18/22 History Fiber Tablet 1 - 2 tab PO DAILY 07/18/22 07/18/22 History Furosemide [Lasix] 20 mg PO BID PRN 07/18/22 07/18/22 History Losartan Potassium [Cozaar] 100 mg PO DAILY 07/18/22 07/18/22 History Multivitamins, Thera [Multivitamin 1 tab PO DAILY 07/18/22 07/18/22 History (formulary)] Omeprazole 40 mg PO BID 07/18/22 07/18/22 History Allergies Allergy/AdvReac Type Severity Reaction Status Date / Time morphine AdvReac Unknown Verified 07/18/22 15:33 Physical Exam Osteopathic Statement: *. No significant issues noted on an osteopathic structural exam other than those noted in the History and Physical/Consult. Vitals: Vital Signs Temp Pulse Pulse Resp BP BP Pulse Ox 07/18/22 18:10 98 07/18/22 17:25 97.7 F 56 L 20 132/64 98 07/18/22 17:06 62 18 166/92 96 07/18/22 14:33 67 18 149/87 95 07/18/22 12:26 98.7 F 70 22 168/92 95 Intake and Output 07/18/22 07/18/22 07/18/22 06:59 14:59 22:59 Other: Weight 151.953 kg 151.953 kg Results CBC & Chem 7: 07/18/22 14:08 07/18/22 14:08 Labs: Abnormal Lab Results - Last 24 Hours (Table) 07/18/22 07/18/22 Range/Units 14:08 14:08 APTT 20.9 L (22.0-30.0) sec Glucose 107 H (74-99) mg/dL Thrombosis Risk Factor Assmnt - Choose All That Apply Each Risk Factor Represents 2 Points: Age 61-74 years Thrombosis Risk Factor Assessment Total Risk Factor Score: 2 Thrombosis Risk Factor Assessment Level: Low Risk
[2022-07-18] MEDS: CEPHALEXIN 500 MG CAP PO SCH ×2 (19:30→21:45)
[2022-07-18] MEDS ORDERED: ATORVASTATIN 20 MG TAB PO SCH (21:00)
[2022-07-18] MEDS: HEPARIN SODIUM,PORCINE/PF 5,000 UNIT/0.5 ML SYRINGE SQ SCH (21:43)
[2022-07-18] MEDS: PANTOPRAZOLE 40 MG TABLET PO SCH (21:44)
[2022-07-19] MEDS ORDERED: LEVOTHYROXINE 100 MCG TAB PO SCH (06:30)
[2022-07-19 06:36] VITALS: PULSE 60
[2022-07-19 07:13] VITALS: BP 124/63; RESP 20; TEMP 98
[2022-07-19] MEDS ORDERED: KETOROLAC 15 MG/ML 1 ML VIAL IVP STA (07:53)
[2022-07-19] MEDS: HEPARIN SODIUM,PORCINE/PF 5,000 UNIT/0.5 ML SYRINGE SQ SCH ×2 (07:53→09:20)
--- NOTE | 2022-07-19 08:55 | P.CRDCN ---
History of Present Illness History of present illness: HISTORY OF PRESENTING ILLNESS This is a pleasant 72-year-old female past medical history significant for coronary artery disease status post PCI in 2004, obesity status post gastric bypass surgery, obstructive sleep apnea with CPAP, venous insufficiency, hypertension, hyperlipidemia, asthma. She follows in the office with Dr. Arthur. We have been asked to see in consultation for chest pain. Patient presents to the emergency department with complaints of right foot wound and chest pain. Patient states she follows up in clinic and was diagnosed with lymphedema and has been getting bilateral lower extremity wrapping. She states that yesterday she noticed a blister on her right foot and was concerned that it was getting infected. She also woke up with midsternal chest discomfort. It was non-radiating, non-exertional. She states she has been having this discomfort intermittently for a few months on/off. She denies any associated diaphoresis, nausea, shortness of breath, lightheadedness, or dizziness. She did have relief with nitro overnight. Yesterday she she called the wound clinic and when she mentioned that she also had chest pain last night they told her to come to the emergency department for evaluation. Patient was seen in follow-up with Dr. Arthur in the office, she underwent a dobutamine stress test which was nondiagnostic secondary to her unable to get her heart rate up to 85% maximal predicted heart rate. However at 67% there is no inducible ischemia. Repeated stress test versus cardiac catheterization was discussed with the patient but she was hesitant at that time. Patient has endorsed that her blood pressure has been elevated at home. DIAGNOSTICS * EKG reveals sinus bradycardia, heart rate 59, no significant STT wave abnormalities chest ischemia. * Telemetry tracings indicate sinus rhythm with heart rates 50s60s * Chest xray no acute cardiopulmonary process noted. * Laboratory reviewed, troponin negative 3, CBC unremarkable, sodium 140, potassium 4.5, BUN 13, serum crit 0.6, magnesium 1.7 * Dobutamine stress echocardiogram 02/2022 in the office was nondiagnostic secondary to inability to reach 85% PMHR. Patient didn't achieve 67% PMHR no inducible ischemia noted. EF 55%. * Echocardiogram 02/2022 revealed EF 55%, mild LVH, trace aortic regurgitation, mild tricuspid regurgitation * Current home medications include simvastatin 40 mg nightly, Lasix 40 mg twice a day when necessary, aspirin 81 mg daily, Toprol succinate 25 mg daily, losartan 100 mg daily, Imdur 60 mg daily, omeprazole, Synthroid REVIEW OF SYSTEMS At the time of my exam: CONSTITUTIONAL: Denies fever or chills. CARDIOVASCULAR: Denies chest pain, shortness of breath, orthopnea, PND or palpitations. RESPIRATORY: Denies cough. GASTROINTESTINAL: Denies abdominal pain, diarrhea, constipation, nausea or vomiting. MUSCULOSKELETAL: Denies myalgias. NEUROLOGIC: Denies numbness, tingling, headache or weakness. ENDOCRINE: Denies fatigue, weight change, polydipsia or polyurina. GENITOURINARY: Denies burning, hematuria or urgency with micturation. HEMATOLOGIC: Denies history of anemia or bleeding. PHYSICAL EXAMINATION Blood pressure 124/63, heart rate 60, afebrile, saturations 95% on room air CONSTITUTIONAL: No apparent distress. HEENT: Head is normocephalic. Pupils are equal, round. Sclerae anicteric. Mucous membranes of the mouth are moist. No JVD. No carotid bruit. CHEST EXAMINATION: Lungs are clear to auscultation. No chest wall tenderness is noted on palpation or with deep breathing. HEART EXAMINATION: Regular rate and rhythm. S1, S2 heard. No murmurs, gallops or rub. ABDOMEN: Soft, nontender. Positive bowel sounds. EXTREMITIES: 2+ peripheral pulses, no lower extremity edema and no calf tenderness. SKIN: Right foot dorsal surface blister, redness noted NEUROLOGIC EXAMINATION: Patient is awake, alert and oriented x3. ASSESSMENT Intermittent chest pain, acute coronary syndrome has been ruled out. Patient did have some relief with nitro Right foot blister Lymphedema Coronary artery disease status post PCI in 2004 Obesity status post gastric bypass surgery in the past Obstructive sleep apnea Venous insufficiency Hypertension Hyperlipidemia Asthma PLAN An acute coronary event has been ruled out with no EKG evidence of ischemia and negative cardiac enzymes. Per Dr. Rodriguez start amlodipine low dose at 2.5mg daily. Continue home cardiac medications Rest of management per primary No further inpatient workup from a cardiology perspective. Recommend patient follow up with Dr. Arthur as an outpatient for further discussion of cardiac catherization as an outpatient. Patient is stable for discharge from a cardiology perspective Thank you kindly for this consultation. Nurse practitioner note has been reviewed by physician. Signing provider agrees with the documented findings, assessment, and plan of care. Past Medical History Past Medical History: Asthma, Coronary Artery Disease (CAD), Hyperlipidemia, Hypertension, Memory Impairment, Pneumonia, Sleep Apnea/CPAP/BIPAP History of Any Multi-Drug Resistant Organisms: MRSA Date of last positivie culture/infection: 2017 MDRO Source:: nasal passages Past Surgical History: Section, Heart Catheterization With Stent, Hernia Repair Additional Past Surgical History / Comment(s): gastric bypass sleeve, vein stripping, L foot bone graft from L hip margaret britton, kim Past Anesthesia/Blood Transfusion Reactions: No Reported Reaction, Postoperative Nausea & Vomiting (PONV) Date of Last Stent Placement:: 2004 Past Psychological History: No Psychological Hx Reported Smoking Status: Former smoker Past Alcohol Use History: Occasional Past Drug Use History: None Reported Medications and Allergies Home Medications Medication Instructions Recorded Confirmed Type Isosorbide Mononitrate ER [Imdur] 60 mg PO DAILY 06/05/21 07/18/22 History Levothyroxine Sodium [Synthroid] 200 mcg PO DAILY 06/05/21 07/18/22 History Metoprolol Succinate [Toprol XL] 25 mg PO DAILY 06/05/21 07/18/22 History Montelukast Sodium [Singulair] 10 mg PO DAILY 06/05/21 07/18/22 History [place]-3 Fatty Acids/Fish Oil [Fish 1 cap PO DAILY 06/05/21 07/18/22 History Oil 1,000 mg Softgel] Simvastatin [Zocor] 40 mg PO HS 06/05/21 07/18/22 History Acetaminophen Tab [Tylenol] 650 mg PO Q6HR 07/18/22 07/18/22 History Aspirin [[place] Aspirin EC] 81 mg PO DAILY 07/18/22 07/18/22 History Fiber Tablet 1 - 2 tab PO DAILY 07/18/22 07/18/22 History Furosemide [Lasix] 20 mg PO BID PRN 07/18/22 07/18/22 History Losartan Potassium [Cozaar] 100 mg PO DAILY 07/18/22 07/18/22 History Multivitamins, Thera [Multivitamin 1 tab PO DAILY 07/18/22 07/18/22 History (formulary)] Omeprazole 40 mg PO BID 07/18/22 07/18/22 History Allergies Allergy/AdvReac Type Severity Reaction Status Date / Time morphine AdvReac Unknown Verified 07/18/22 15:33 Physical Exam Vitals: Vital Signs Temp Pulse Pulse Resp BP BP Pulse Ox 07/19/22 07:00 98 F 60 20 124/63 95 07/19/22 02:10 97.8 F 60 17 129/71 93 L 07/18/22 21:21 97.6 F 64 20 147/82 94 L 07/18/22 18:10 98 07/18/22 17:25 97.7 F 56 L 20 132/64 98 07/18/22 17:06 62 18 166/92 96 07/18/22 14:33 67 18 149/87 95 07/18/22 12:26 98.7 F 70 22 168/92 95 Intake and Output 07/18/22 07/19/22 07/19/22 22:59 06:59 14:59 Output Total 0 0 Balance 0 0 Output: Emesis 0 0 Other: # Voids 1 # Bowel Movements 1 Weight 151.953 kg Results 07/18/22 14:08 07/18/22 14:08 Cardiac Enzymes 07/18/22 07/18/22 07/18/22 Range/Units 14:08 14:08 17:11 AST 24 (14-36) U/L Troponin I <0.012 <0.012 (0.000-0.034) ng/mL 07/18/22 Range/Units 20:24 AST (14-36) U/L Troponin I <0.012 (0.000-0.034) ng/mL Coagulation 07/18/22 Range/Units 14:08 PT 9.7 (9.0-12.0) sec APTT 20.9 L (22.0-30.0) sec CBC 07/18/22 Range/Units 14:08 WBC 7.0 (3.8-10.6) k/uL RBC 4.45 (3.80-5.40) m/uL Hgb 13.6 (11.4-16.0) gm/dL Hct 42.5 (34.0-46.0) % Plt Count 276 (150-450) k/uL Comprehensive Metabolic Panel 07/18/22 Range/Units 14:08 Sodium 140 (137-145) mmol/L Potassium 4.5 (3.5-5.1) mmol/L Chloride 104 (98-107) mmol/L Carbon Dioxide 24 (22-30) mmol/L BUN 13 (7-17) mg/dL Creatinine 0.67 (0.52-1.04) mg/dL Glucose 107 H (74-99) mg/dL Calcium 9.6 (8.4-10.2) mg/dL AST 24 (14-36) U/L ALT 22 (4-34) U/L Alkaline Phosphatase 92 (38-126) U/L Total Protein 7.3 (6.3-8.2) g/dL Albumin 4.5 (3.5-5.0) g/dL Current Medications Generic Name Dose Route Start Last Admin Trade Name Freq PRN Reason Stop Dose Admin Aspirin 325 mg 07/19/22 09:00 Aspirin 325 Mg Tab [address] [facility] Atorvastatin Calcium 20 mg 07/18/22 21:00 07/18/22 21:41 Atorvastatin 20 Mg Tab PO 20 mg HS EDITH Administration Cephalexin 500 mg 07/18/22 18:00 07/18/22 21:45 Cephalexin 500 Mg Cap PO 500 mg QID EDITH Administration Protocol Heparin Sodium (Porcine) 5,000 unit 07/19/22 00:00 07/18/22 21:43 Heparin Sodium,Porcine/Pf 5,000 Unit/0.5 Ml Syringe SQ Not Given Q8HR [facility] Isosorbide Mononitrate 60 mg 07/19/22 09:00 Isosorbide Mononitrate Er 60 Mg Tab.Er.24h PO DAILY [facility] Levothyroxine Sodium 200 mcg 07/19/22 06:30 07/19/22 05:36 Levothyroxine 100 Mcg Tab PO 200 mcg DAILY@0630 EDITH Administration Losartan Potassium 100 mg 07/19/22 09:00 Losartan 50 Mg Tab PO [address] [facility] Metoprolol Succinate 25 mg 07/19/22 09:00 Metoprolol Succinate (Er) 25 Mg Tab.Er.24h PO DAILY [facility] Montelukast Sodium 10 mg 07/19/22 09:00 Montelukast 10 Mg Tab PO DA[address] [facility] Multivitamins 1 each 07/19/22 09:00 Multivitamins, Thera 1 Each Tab PO DAILY [facility] Naloxone HCl 0.2 mg 07/18/22 17:13 Naloxone 0.4 Mg/Ml 1 Ml Vial IVP Q2M PRN Opioid Reversal Nitroglycerin 0.4 mg 09/07/22 16:12 Nitroglycerin Sl Tabs 0.4 Mg Tab SUBLINGUAL Q5M PRN Chest Pain Ondansetron HCl 4 mg 07/18/22 18:19 Ondansetron 4 Mg/2 Ml Vial IVP Q8HR PRN Nausea And Vomiting Pantoprazole Sodium 40 mg 07/18/22 21:00 07/18/22 21:44 Pantoprazole 40 Mg Tablet PO 40 mg BID EDITH Administration Intake and Output 07/18/22 07/19/22 07/19/22 22:59 06:59 14:59 Output Total 0 0 Balance 0 0 Output: Emesis 0 0 Other: # Voids 1 # Bowel Movements 1 Weight 151.953 kg 07/18/22 14:08 07/18/22 14:08
[2022-07-19] MEDS ORDERED: ASPIRIN 81 MG PO SCH (09:00)
[2022-07-19] MEDS ORDERED: ASPIRIN 325 MG TAB PO SCH (09:00)
[2022-07-19] MEDS ORDERED: MONTELUKAST 10 MG TAB PO SCH (09:00)
[2022-07-19] MEDS ORDERED: METOPROLOL SUCCINATE (ER) 25 MG TAB.ER.24H PO SCH (09:00)
[2022-07-19] MEDS ORDERED: MULTIVITAMINS, THERA 1 EACH TAB PO SCH (09:00)
[2022-07-19] MEDS ORDERED: LOSARTAN 50 MG TAB PO SCH (09:00)
[2022-07-19] MEDS ORDERED: NON FORMULARY DRUG (Omega-3 Fatty Acids/Fish Oil [Fish Oil 1,000 Mg Softgel] 1 EACH Capsul PO SCH (09:00)
[2022-07-19] MEDS ORDERED: amLODIPine 2.5 MG TAB PO SCH (09:00)
[2022-07-19] MEDS ORDERED: ISOSORBIDE MONONITRATE ER 60 MG TAB.ER.24H PO SCH (09:00)
[2022-07-19 09:08] LABS: Chol/HDL Ratio 4.17 Ratio; LDL Cholesterol,Calculated 104.5 mg/dL (0.0-131.0)
[2022-07-19] MEDS: PANTOPRAZOLE 40 MG TABLET PO SCH (09:18)
[2022-07-19] MEDS: CEPHALEXIN 500 MG CAP PO SCH (09:19)
--- NOTE | 2022-07-19 14:57 | XR ---
EXAMINATION TYPE: XR chest 2V DATE OF EXAM: 07/18/2022 COMPARISON: Prior chest x-ray report June 05, 2021 HISTORY: Chest pain. TECHNIQUE: Frontal and lateral views of the chest are obtained. FINDINGS: There is no suspicious focal air space opacity, pleural effusion, or pneumothorax seen. T he cardiac silhouette size is within normal limits. Retrocardiac opacity consistent with moderate s ize hiatal hernia is noted, not described on prior report. Spurring in the lower thoracic spine is pr esent. IMPRESSION: No acute cardiopulmonary process.
--- NOTE | 2022-07-19 15:09 | XR ---
EXAMINATION TYPE: XR foot complete RT DATE OF EXAM: 07/18/2022 CLINICAL HISTORY: Pain and swelling. Infection rule out osteomyelitis. TECHNIQUE: Frontal, lateral, and oblique images of the right foot are obtained. COMPARISON: None FINDINGS: There is no acute fracture/dislocation evident in the right foot. Small to moderate-sized superior calcaneal spur. Large inferior calcaneal spur. Mild to moderate narrowing and spurring throu ghout the hindfoot and midfoot aspect of the right foot. Moderate diffuse soft tissue swelling. No os seous destruction to suggest acute osteomyelitis. Os trigonum is seen with spurring at this level not ed. IMPRESSION: As above. No convincing radiographic evidence for acute osteomyelitis. If clinical suspic ion persists further investigation with 3 phase bone scan and/or MRI may be warranted.
--- NOTE | 2022-07-19 15:32 | P.DS ---
Providers Date of admission: 07/18/22 16:18 Expected date of discharge: 07/19/22 Attending physician: Lise Álvarez DO Consults: 07/18/22 16:13 Consult Physician Urgent Consulting Provider: [facility] Consult Reason/Comments: Chest pain Do you want consulting provider notified?: Yes Primary care physician: [facility] Course: Discharge Diagnosis: Chest pain, and acute coronary event has been ruled out. Patient to continue cardiac medication regimen with daily aspirin, simvastatin, metoprolol, isosorbide mononitrate, losartan, and started on amlodipine 2.5 mg daily. Patient to follow up outpatient with PCP in 1-2 days and with digital media manager in 1 week to schedule/further discuss outpatient cardiac catheterization. History of CAD with stents. Patient to continue cardiac medication regimen with daily aspirin, metoprolol, isosorbide mononitrate, losartan, and started on amlodipine 2.5 mg daily. Hypertension. Patient to continue cardiac medication regimen with daily aspirin, metoprolol, isosorbide mononitrate, losartan, and started on amlodipine 2.5 mg daily. Hyperlipidemia. Patient to continue simvastatin nightly. Vesicle to right foot, dorsal surface with small area of cellulitis. Continue Keflex 500 mg every 6 hours for a total of 10 days and continue to follow up outpatient with wound care center. Lymphedema of bilateral lower extremities. Patient to continue to follow up outpatient with wound care clinic. Obstructive sleep apnea. Continue use of home CPAP nightly and when napping Hospital Course: Patient is a very pleasant 72-year-old female with a past medical history of CAD with stents, hypertension, hyperlipidemia, obstructive sleep apnea CPAP dependent nightly, and lymphedema. She presented to the emergency department with a chief complaint of chest pain and wound on right foot. Patient reports that she follows at the wound care clinic and gets her bilateral lower extremities wrapped secondary to lymphedema. Patient reports yesterday she developed a blister on her right foot secondary to irritation of where the wrap seemed to rub and while sleeping last night she was awoken by a sharp pain in her midsternal chest in which she states she took off her CPAP reached over on her nightstand and grabbed a nitro placing it under her tongue and the chest pain was resolved almost instantly and she went back to sleep. Patient reports upon awakening this morning she felt back to her normal baseline and had no further episodes of chest pain or discomfort. However she states she was supposed to go to the clinic today to have her legs wrapped but due to the blister she thought it was best that she did not. So she called the clinic and when she mentioned that she also had chest pain last night they told her to come to the emergency department for evaluation. Patient underwent full evaluation in the emergency department. CBC, coags, and CMP were unremarkable. Troponin was negative at less than 0.012. EKG showing sinus bradycardia at 59 bpm with no noted T wave or ST abnormality showing no signs of acute ischemia. Chest x-ray negative for acute cardiopulmonary process. Patient was admitted under our services with consultation to cardiology. She had no further episodes of chest pain or discomfort. Troponins were trended overnight all negative at less than 0.0123 draws. Lipid profile revealing elevated triglycerides of 154 otherwise normal findings. X-ray left foot showing no convincing radiographic evidence for osteomyelitis. Cardiology evaluated patient and recommending outpatient follow-up in their office next week to schedule outpatient cardiac cath. Patient was started on Keflex for small area of erythema surrounding blister on the dorsal surface of right foot. Patient to continue with Keflex 500 mg every 6 hours for a total of 10 days. Patient instructed she will also need to continue to follow with wound care center for wrapping of her legs secondary to bilateral lower extremity lymphedema. Discharge instructions Discussed with patient and she verbalized understanding denying having any questions or concerns at this time. Physical exam: Vital signs reviewed and stable. General: Nontoxic, no distress and appears stated age. Derm: Skin warm and dry, normal coloration for ethnicity. Patient has a fluid- filled vesicle to right foot with minimal erythema surrounding, no signs of infection. Head: Atraumatic, normocephalic and symmetric. Eyes: EOMs intact, no lid lag, and anicteric sclera Mouth: no lip lesions, mucus membranes moist Cardiovascular: regular rate and rhythm with normal S1S2, no murmur, positive posterior tibial pulses bilaterally, and cap refill < 2 seconds. Lungs: Respirations even, regular, and unlabored on room air. Lungs CTA bilaterally, no rhonchi, no rales, no wheezing, and no accessory muscle usage. Abdominal: Obese abdomen soft, nontender to palpation, no guarding, no appreciable organomegaly Ext: ROM intact. No gross muscle atrophy, bilateral lower extremity nonpitting edema, no contractures Neuro: Speech clear, face symmetrical and CN II-XII grossly intact with no noted focal neuro deficits Psych: Alert and oriented to person, place, time, and situation. Appropriate and pleasant affect. A total of 36 minutes of time were spent preparing this complex discharge summary. Pt was discharged on 07/19/22 at 10:47 AM. I reviewed the documentation as provided by the YAO above, who is the original author of this note. I agree with the documented assessment and plan, with the following changes: none Patient Condition at Discharge: Stable Plan - Discharge Summary Discharge Rx Participant: No New Discharge Prescriptions: New Cephalexin [Keflex] 500 mg PO QID 9 Days #36 cap Ondansetron Odt [Zofran ODT] 4 mg PO Q8HR PRN #30 tab PRN Reason: Nausea Fluconazole [Diflucan] 150 mg PO ONCE 1 Days #1 tab Ibuprofen [Motrin] 800 mg PO Q8H PRN #30 tab PRN Reason: Pain amLODIPine [Norvasc] 2.5 mg PO DAILY 30 Days #30 tab Continue [place]-3 Fatty Acids/Fish Oil [Fish Oil 1,000 mg Softgel] 1 cap PO DAILY Simvastatin [Zocor] 40 mg PO HS Montelukast Sodium [Singulair] 10 mg PO DAILY Aspirin [[place] Aspirin EC] 81 mg PO DAILY Furosemide [Lasix] 20 mg PO BID PRN PRN Reason: Edema Omeprazole 40 mg PO BID Acetaminophen Tab [Tylenol] 650 mg PO Q6HR Levothyroxine Sodium [Synthroid] 200 mcg PO DAILY Metoprolol Succinate [Toprol XL] 25 mg PO DAILY Isosorbide Mononitrate ER [Imdur] 60 mg PO DAILY Multivitamins, Thera [Multivitamin (formulary)] 1 tab PO DAILY Losartan Potassium [Cozaar] 100 mg PO DAILY Fiber Tablet 1 - 2 tab PO DAILY Discharge Medication List Isosorbide Mononitrate ER [Imdur] 60 mg PO DAILY 06/05/21 [History] Levothyroxine Sodium [Synthroid] 200 mcg PO DAILY 06/05/21 [History] Metoprolol Succinate [Toprol XL] 25 mg PO DAILY 06/05/21 [History] Montelukast Sodium [Singulair] 10 mg PO DAILY 06/05/21 [History] [place]-3 Fatty Acids/Fish Oil [Fish Oil 1,000 mg Softgel] 1 cap PO DAILY 06/05/21 [History] Simvastatin [Zocor] 40 mg PO HS 06/05/21 [History] Acetaminophen Tab [Tylenol] 650 mg PO Q6HR 07/18/22 [History] Aspirin [[place] Aspirin EC] 81 mg PO DAILY 07/18/22 [History] Fiber Tablet 1 - 2 tab PO DAILY 07/18/22 [History] Furosemide [Lasix] 20 mg PO BID PRN 07/18/22 [History] Losartan Potassium [Cozaar] 100 mg PO DAILY 07/18/22 [History] Multivitamins, Thera [Multivitamin (formulary)] 1 tab PO DAILY 07/18/22 [History] Omeprazole 40 mg PO BID 07/18/22 [History] Cephalexin [Keflex] 500 mg PO QID 9 Days #36 cap 07/19/22 [Rx] Fluconazole [Diflucan] 150 mg PO ONCE 1 Days #1 tab 07/19/22 [Rx] Ibuprofen [Motrin] 800 mg PO Q8H PRN #30 tab 07/19/22 [Rx] Ondansetron Odt [Zofran ODT] 4 mg PO Q8HR PRN #30 tab 07/19/22 [Rx] amLODIPine [Norvasc] 2.5 mg PO DAILY 30 Days #30 tab 07/19/22 [Rx] Follow up Appointment(s)/Referral(s): Regan Arthur DO [STAFF PHYSICIAN] - 08/10/22 2:45 pm Artemio Hollingsworth III, MD [Primary Care Provider] - 1-2 days Patient Instructions/Handouts: Chest Pain (DC), Cellulitis (GEN) Activity/Diet/Wound Care/Special Instructions: Activity: As tolerated. Take breaks as needed. Diet: Heart healthy and carb consistent diet. Avoid salts, or foods with hidden salts such as canned or boxed foods and frozen dinners. Extra salt makes your heart work harder and traps the fluid in your body for longer. Special Instructions: Take all of your medications as directed and remember to keep all of your doctor's appointments and follow-up as needed. Thank you for allowing us to participate in your care, it was truly a pleasure having you for our patient!!! Keep Appointment with Dr. Kapadia. Discharge Disposition: HOME SELF-CARE
== END 2022-07-19 12:00 | disposition home or self-care (01) ==
LOC: EC 12:09 → 6NMEDSUR 16:18
PROVIDERS: ADMIT Internal Medicine; ATTEND Internal Medicine
DX: R07.9 Chest pain, unspecified (principal); I89.0 Lymphedema, not elsewhere classified; S90.821A Blister (nonthermal), right foot, initial encounter; L03.115 Cellulitis of right lower limb; I25.10 Atherosclerotic heart disease of native coronary artery without angina pectoris; I10 Essential (primary) hypertension; J45.909 Unspecified asthma, uncomplicated; E78.5 Hyperlipidemia, unspecified; G47.33 Obstructive sleep apnea (adult) (pediatric); I87.2 Venous insufficiency (chronic) (peripheral); E66.9 Obesity, unspecified; Z87.891 Personal history of nicotine dependence; Z95.5 Presence of coronary angioplasty implant and graft; Z98.84 Bariatric surgery status; Z79.82 Long term (current) use of aspirin; Z79.890 Hormone replacement therapy; Z79.899 Other long term (current) drug therapy; Z88.5 Allergy status to narcotic agent; X58.XXXA Exposure to other specified factors, initial encounter
CPT/HCPCS: 96376; 96374; 99285; 36415; 93005; 80061; 80053; 83605; 83735; 84484; 85025; 85610; 85730; 87040; 73630; 71046; G0378 ×2; J1885 ×2

== ENCOUNTER 2022-09-27 05:37 | Day surgery (SDC) | payer MEDICARE, BC ==
[2022-09-25 14:57] VITALS: BMI 58.8
[2022-09-27] MEDS ORDERED: HEPARIN SODIUM,PORCINE 2,500 UNIT in SODIUM CHLORIDE 0.9% 250 ML IRRIGATION PRN (05:48)
[2022-09-27] MEDS ORDERED: ASPIRIN 325 MG TAB PO STA (05:48)
[2022-09-27] MEDS ORDERED: SODIUM CHLORIDE 0.9% 1,000 ML in EMPTY BAG 1 BAG IV SCH (05:48)
[2022-09-27] MEDS ORDERED: ALPRAZolam 0.5 MG TAB PO PRN (05:48)
[2022-09-27] MEDS ORDERED: ALPRAZolam 0.25 MG TAB PO PRN (05:48)
[2022-09-27] MEDS ORDERED: NITROGLYCERIN SL TABS 0.4 MG TAB SUBLINGUAL PRN (05:48)
[2022-09-27] MEDS ORDERED: HEPARIN SODIUM,PORCINE 10,000 UNIT in SODIUM CHLORIDE 0.9% 1,000 ML IRRIGATION PRN (05:48)
[2022-09-27] MEDS ORDERED: ATORVASTATIN 80 MG TAB PO STA (05:48)
[2022-09-27 06:27] VITALS: RESP 18; TEMP 98.2
[2022-09-27] MEDS ORDERED: VERAPAMIL 2.5 MG/ML 2 ML AMP ONE (07:13)
[2022-09-27] MEDS ORDERED: HEPARIN SODIUM 1,000 UN/ML (10ML VL) ONE (07:15)
[2022-09-27] MEDS ORDERED: fentaNYL (PF) 50 MCG/ML 2 ML AMP ONE (07:15)
[2022-09-27] MEDS ORDERED: ONDANSETRON 4 MG/2 ML VIAL ONE (07:34)
[2022-09-27] MEDS ORDERED: ONDANSETRON 4 MG/2 ML VIAL IVP ONE (07:42)
[2022-09-27] MEDS: fentaNYL (PF) 50 MCG/ML 2 ML AMP IV ONE ×2 (07:42→08:23)
[2022-09-27] MEDS: MIDAZOLAM 2 MG/2 ML VIAL IV ONE ×2 (07:42→07:59)
[2022-09-27] MEDS ORDERED: LIDOCAINE 1% INJ 10MG/ML (30 ML VIAL-PF) SQ ONE (07:44)
[2022-09-27] MEDS: VERAPAMIL SYRINGE (5 MG/10 ML) INTRAARTER ONE ×2 (07:53→08:05)
[2022-09-27] MEDS: HEPARIN SODIUM 1,000 UN/ML (10ML VL) IV ONE ×2 (08:05→08:14)
[2022-09-27] MEDS ORDERED: IOPAMIDOL-370 125ML BTL INJ ONE (08:23)
[2022-09-27] MEDS ORDERED: IOPAMIDOL-370 100ML BTL INJ ONE (08:34)
--- NOTE | 2022-09-27 08:42 | P.CARDCATH ---
Description of Procedure: PROCEDURES PERFORMED: Left heart catheterization, bilateral coronary angiography, iFR INDICATION: Increasing chest pain and shortness breath concerning for unstable angina CONSENT:I have discussed the risks, benefits and alternative therapies for the above-mentioned procedure and for both sedation/analgesia as well as necessary blood product administration, if indicated, as they pertain to this patient. The patient has indicated understanding and acceptance of the risks and procedures discussed. PROCEDURE: After the risks, benefits and alternatives of the above mentioned procedure explained in detail with the patient, informed consent was obtained. Patient was taken to the catheterization lab and prepped and draped in usual fashion. 1% lidocaine was used to anesthetize the right radial artery. A 6- Thai sheath was placed in the right radial artery using modified Seldinger technique. There was some tortuosity of the radial artery distally however more proximal was normal and able to be appreciated and cannulated with ultrasound. Left coronary angiography was performed with a 5-Thai JL 3.5 catheter and right coronary angiography was performed with a 5-Thai JR5 catheter in various views. Additional images were obtained with a 6Fr AR 2 catheter as the RCA came off anterior. A 5-Thai FR5 catheter was inserted into the left ventricle and pressure measurements were obtained. The decision was made to perform iFR of the RCA. There was difficulty engaging the RCA with a 6Fr AL 0.75, AL 1.0 and eventually was able to engage subselectivily with a FR5 guide and iFR wire was placed in the ostium and normalized. It was then advanced 1cm distal to the lesion and iFR was performed and was normal at 0.95. The wire was then removed. The right radial sheath was removed and a TR band was placed with hemostasis achieved. The patient tolerated the procedure well. Patient was transported back to the post catheterization holding area in stable condition. Conscious Sedation: Patient was monitored under the direct supervision of vision of myself for conscious sedation using Versed and fentanyl for a total duration of 50 minutes HEMODYNAMICS: Ao: 159/96 LV: 148/20, LVEDP 23 SELECTIVE CORONARY ARTERIOGRAPHY: LEFT MAIN: The left main is a large caliber vessel which bifurcates into the LAD and circumflex. There is no significant stenosis. LEFT ANTERIOR DESCENDING CORONARY ARTERY: LAD is a large caliber vessel which wraps around to the apex. There are mild luminal irregularities up to 20% LEFT CIRCUMFLEX CORONARY ARTERY: Left circumflex is a moderate caliber vessel with mild luminal irregularities up to 20% RIGHT CORONARY ARTERY: The right coronary artery is a large caliber vessel which gives off a PDA and PLV branch and is the dominant vessel. There is a mid RCA stents with 40-50% in-stent stenosis as well as a mid to distal 50% RCA stenosis. FINAL IMPRESSION: 1. Relatively mild CAD with 50% in-stent RCA stenosis and 50% mid to distal RCA stenosis, iFR normal 2. Elevated left sided filling pressures PLAN: 1. Aggressive risk factor modification per most recent ACC/AHA guidelines. 2. Increase diuretics given elevated LVEDP
[2022-09-27 11:37] VITALS: BP 137/63; PULSE 60
== END 2022-09-27 12:40 | disposition home or self-care (01) ==
LOC: CATHCVL 05:37
PROVIDERS: ATTEND Internal Medicine
DX: I25.10 Atherosclerotic heart disease of native coronary artery without angina pectoris (principal)
CPT/HCPCS: 93458; 93799; C1769 ×2; C1887 ×3; C1894; J2250; J2405; J2001; J3010; J1644; Q9967 ×2